=== PATIENT | male | born 1975 | race Caucasian/White ===

== ENCOUNTER 2017-03-19 20:54 | Emergency (ER) | payer OTHER ==
[~2017-03-19] VITALS: Ht 172.7 cm; Wt 83.9 kg
[2017-03-19 21:31] VITALS: BP 148/94
== END 2017-03-20 00:05 | disposition admitted as inpatient to this hospital (09) ==
LOC: ERH 20:54
DX: T22.011A Burn of unspecified degree of right forearm, initial encounter (principal)